=== PATIENT | male | born 1955 | race Caucasian/White ===

== ENCOUNTER 2019-05-18 23:23 | Emergency (ER) | payer MEDICARE ==
[~2019-05-18] VITALS: Ht 177.8 cm; Wt 164.2 kg
[~2019-05-18 23:23] MED LIST: FLEXERIL5 MG PO; Motrin,Rufen800 MG PO; TRAMADOL HCL50 MG PO; VICODIN ES 7501 TAB PO
[2019-05-19 00:13] LABS: HEMATOCRIT 36.7 % (42.0-52.0); HEMOGLOBIN 11.9 g/dl (14.0-18.0); MEAN CELL VOLUME 92.2 fl (80.0-94.0); MEAN CORPUSCULAR HGB 29.9 pg (27.0-31.0); MEAN CORPUSCULAR HGB CONC 32.4 g/dl (33.0-37.0); MEAN PLATELET VOLUME 9.1 fl (9.6-12.3); PLATELET COUNT AUTOMATED 421 10*3/uL (130-400); RED BLOOD COUNT 3.98 10*6/uL (4.50-5.90); RED CELL DISTRI WIDTH 14.6 % (0-14.5); WHITE BLOOD COUNT 22.6 10*3/uL (4.8-10.8)
[2019-05-19 00:22] LABS: INTERNATIONAL NORM RATIO 1.1 (2.0-3.5)
[2019-05-19 00:31] LABS: ALBUMIN 2.7 gm/dl (3.1-4.5); ALKALINE PHOSPHATASE 130 U/L (45-117); BUN 121 mg/dl (7-24); CHLORIDE 94 mmol/L (98-107); CREATININE 3.95 mg/dL (0.70-1.30); LIPASE 313 U/L (73-393); POTASSIUM 4.8 mmol/L (3.5-5.1); SGOT/AST 20 IU/L (3-35); SGPT/ALT 14 U/L (12-78); SODIUM 124 mmol/L (136-145); TOTAL PROTEIN 9.3 gm/dL (6.4-8.2)
[2019-05-19 00:32] LABS: TROPONIN I < 0.015 ng/ml (<0.045)
[2019-05-19 00:42] LABS: PLATELET SUFFICIENCY NORMAL (NORMAL); TOTAL CELLS COUNTED 100 #CELLS
[2019-05-19] MEDS ORDERED: CARTIA XT180 MG PO (01:00)
[2019-05-19] MEDS ORDERED: CARVEDILOL3.125 MG PO (01:01)
[2019-05-19] MEDS ORDERED: XARE20MG PO (01:02)
[2019-05-19] MEDS ORDERED: LASIX40 MG PO (01:06)
[2019-05-19] MEDS ORDERED: ALDACTONE25 M1 PO (01:07)
[2019-05-19] MEDS ORDERED: DIGOXIN250 MCG PO (01:07)
[2019-05-19 02:43] LABS: BILIRUBIN NEGATIVE (NEGATIVE); BLOOD 3+ (NEGATIVE); CLARITY TURBID (CLEAR); COLOR YELLOW (YELLOW); GLUCOSE NEGATIVE (NEGATIVE); KETONE NEGATIVE (NEGATIVE); LEUKO ESTERASE 3+ (NEGATIVE); NITRITE NEGATIVE (NEGATIVE); SPECIFIC GRAVITY 1.015 (1.005-1.030); UROBILINOGEN 0.2 E.U./dl (0.2-1.0)
[2019-05-19 02:57] LABS: BACTERIA 4+; RBC TNTC rbc/hpf (0-2); WBC TNTC wbc/hpf (0-5)
== END 2019-05-19 05:29 | disposition short-term general hospital (02) ==
LOC: ED 23:23
PROVIDERS: Physician Assistant
DX: R42 Dizziness and giddiness (principal); R53.1 Weakness; R19.7 Diarrhea, unspecified; R11.2 Nausea with vomiting, unspecified; T46.0X5A Adverse effect of cardiac-stimulant glycosides and drugs of similar action, initial encounter; A41.9 Sepsis, unspecified organism; N19 Unspecified kidney failure; I48.91 Unspecified atrial fibrillation; I50.9 Heart failure, unspecified; Z79.899 Other long term (current) drug therapy; Y92.89 Other specified places as the place of occurrence of the external cause